=== PATIENT | female | born 1955 | race Caucasian/White ===

== ENCOUNTER → 2017-02-09 | Day surgery (SDC) | payer BC ==
[2017-01-15 09:03] VITALS: Ht 167.6 cm; Wt 86.4 kg
[~2017-02-09] VITALS: Ht 167.6 cm; Wt 86.4 kg
[~2017-02-09] MED LIST: 500ML BSS 0.3ML EPI 1:1000PF IRRIG ONE; ACETAMINOPHEN 325 MG TAB PO PRN; AMVISC PLUS 0.8ML SYRINGE INT OCU ONE; ASCA500 PO; BRIMONIDINE TART 0.2% OP SOLN PER DROP CHARGE ONE; BSS FLUSH ONE; CHOL20007 PO; ENDOCOAT 0.85ML SYRINGE INT OCU ONE; EpINEphrine INJ 1MG/ML AMP 1 MG/ML AMP ONE; LACTATED RINGER'S 1000ML 500 ML IV SCH; LEVO125T72 PO; LIDOCAINE 4% OP SOLN DROP CHARGE ONE; LIDOCAINE 4% OP SOLN DROP CHARGE OPR SCH; LIDOCAINE HCL 1% MPF 2 ML VIAL ONE; LIOT5TAB PO; MIDAZOLAM HCL 1 MG/ML 2ML VIAL ONE; MOXIFLOXACIN OPH SOLN PER DROP CHARGE ONE; NURSING VERBAL MED ORDER ONE; POVIDONE-IODINE OP SOLN 30 ML BTL ONE; PROPARACAINE 0.5% OP SOLN PER DROP CHARGE OPR SCH; SELE200C3 PO; TOBRAMYCIN/DEXAMETHASONE OPH OINT PER APPLN CHARGE ONE; VISCOAT 0.5ML SYRINGE INT OCU ONE
[2017-02-09] MEDS: PHENYLEPHRINE HCL 2.5% OP SOLN PER DROP CHARGE OPR SCH ×2 (08:48→08:53)
[2017-02-09] MEDS: TROPICAMIDE 1% OP SOLN PER DROP CHARGE OPR SCH ×2 (08:49→08:54)
[2017-02-09] MEDS: CYCLOPENTOLATE HCL 1% OP SOLN PER DROP CHARGE OPR SCH ×2 (08:50→08:55)
[2017-02-09] MEDS: KETOROLAC 0.5% OP SOLN PER DROP CHARGE OPR SCH ×2 (08:51→08:56)
[2017-02-09] MEDS: MOXIFLOXACIN OPH SOLN PER DROP CHARGE OPR SCH ×2 (08:52→09:02)
--- NOTE | 2017-02-09 09:15 | History & Physical Bridge - SC ---
H&P Re-Evaluation Bridge Note: I have examined the patient, reviewed the History & Physical and in the interval since the performance of the History & Physical I have noted the following changes of clinical significance: No changes noted
--- NOTE | 2017-02-09 10:06 | Discharge Instructions-SurgCtr ---
Discharge Instructions Date of Service Feb 09, 2017. Visit Reason for Visit: Cataract Right Eye Discharge Discharge Diagnosis / Problem: cataract right eye Discharge Goals Goal(s): Improve function Activity Recommendations Activity Limitations: per Instructions/Follow-up section Lifting Limitations: no more than 5 pounds Anesthesia . Post Anesthesia Instructions: If you have had General Anesthesia or IV Sedation: * Do not drive today. * Resume driving when surgeon permits. * Do not make important decisions or sign legal documents today. * Call surgeon for: 1. Temperature elevations greater than 101 degrees F. 2. Uncontrollable pain. 3. Excessive bleeding. 4. Persistent nausea and vomiting. 5. Medication intolerance (nausea, vomiting or rash). * For nausea and vomiting use only clear liquids such as: tea, soda, bouillon until nausea subsides, then gradually increase diet as tolerated. * If you have any concerns or questions, call your surgeon's office. If physician is unavailable and it is an emergency, call 911 or go to the nearest emergency room. . Instructions / Follow-Up Instructions / Follow-Up ACTIVITY RECOMMENDATIONS: * Light activities * You may walk outside, read, watch television. * Mild irritation and blurred vision are common for the first few days, redness around the white part of the eye is common. MEDICATIONS: Resume previous medications unless instructed otherwise by your surgeon. Eye drops (today and tomorrow): Cipro - one drop in operative eye every 2 hours while awake Prednisolone 1% - one drop in operative eye every 2 hours while awake Prolensa - one drop operative eye 1 times daily SPECIAL CARE INSTRUCTIONS: * If any problems or concerns, please call Dr. Petty's office at . * Keep plastic shield taped over eye to sleep at night. * Keep plastic shield taped over eye except to administer eye drops. * Keep plastic shield on until office visit the following day. FOLLOW UP VISIT: Follow-up with Dr. Petty in the [place] office as scheduled. If not already scheduled, please call the office at . Diet Recommendations Home Diet: resume previous diet Procedures Procedures Performed: Right Eye Cataract Phacoemulsification With Intraocular Lens Implant Pending Studies Studies pending at discharge: no Medical Emergencies . Who to Call and When: Medical Emergencies: If at any time you feel your situation is an emergency, please call 911 immediately. . Non-Emergent Contact Non-Emergency issues call your: Security Alarm Installer . . "Provider Documentation" section prepared by Omkar Petty. .
[2017-02-09 10:07] VITALS: TEMP 36.2
--- NOTE | 2017-02-09 10:08 | [facility] Operative Report ---
Operative Report Operative Date Feb 09, 2017. Pre-Operative Diagnosis Right Eye Cataract Post-Operative Diagnosis Same Procedure(s) Performed Right Eye Cataract Phacoemulsification With Intraocular Lens Implant Surgeon Dr. Petty Nutrition Partner Surgeon(s) None Estimated Blood Loss None Findings cataract right eye Fluids (cc crystalloids) see anesthesia record Specimens None Drains none Anesthesia local with sedation Complication(s) None Disposition Recovery Room / PACU Implants [id number] 17.5 Indications decreased vision right eye Description of Procedure After informed consent was obtained in the holding area the patient was wheeled back to the operating room where cardiac monitoring leads and oxygen by nasal cannula was administered by Anesthesia. Gentle IV sedation was given, and the patient's right eye was prepped and draped in usual sterile fashion. A wire lid speculum was placed into the right eye and the operating microscope was swung into position. Using 0.12 forceps and a Supersharp blade a paracentesis port was made 2 o'clock hours away from the 9 o'clock position of the patient's right eye. 1% non-preserved Lidocaine was then injected into the anterior chamber for anesthesia. A 2.0 mm keratotome blade was then used to make a shelved clear corneal incision at the 9 o'clock position of the right eye. Amvisc was injected into the anterior chamber and a cystotome and Utrata forceps were used to perform a curvilinear capsulorrhexis. BSS on a hydrodissection cannula was used to hydrodissect the lens nucleus away from the capsular bag. The phacoemulsification handpiece was then used in a stop and chop fashion to remove the lens nucleus. The irrigation and aspiration handpiece was then used to remove the residual cortical material. Amvisc was injected into the capsular bag and anterior chamber and a Bausch [employer] Lomb MX60 17.5 Diopter intraocular lens was injected into the capsular bag. Irrigation and aspiration handpiece was used to remove the residual viscoelastic material. The wounds were hydrated and noted to be watertight. The wire lid speculum was removed from the eye. Vigamox, Brimonidine, and TobraDex ointment were placed on the eye and it was shielded. It should be noted that EndoCoat was used extensively during the case to protect the cornea endothelium. DISPOSITION: The patient tolerated the procedure well and was wheeled to the post anesthesia care unit in stable condition. I attest to the content of the Intraoperative Record and any orders documented therein. Any exceptions are noted below. I attest to the content of the Intraoperative Record and any orders documented therein. Any exceptions are noted below.
--- NOTE | 2017-02-09 10:12 | Anesthesia Progress Nt - [facility] ---
Anesthesia Post Op Note Date & Time Feb 09, 2017 at 10:12 Vital Signs Pain Intensity: 0 Vital Signs Past 12 Hours Date Time Temp Pulse Resp B/P (MAP) Pulse Ox O2 Delivery O2 Flow Rate FiO2 02/09/17 10:07 36.2 55 16 113/75 (88) 99 Room Air 02/09/17 08:38 37.2 65 22 122/81 (95) 96 Room Air Notes Mental Status: alert / awake / arousable, participated in evaluation Pt Amnestic to Procedure: Yes Nausea / Vomiting: adequately controlled Pain: adequately controlled Airway Patency, RR, SpO2: stable & adequate BP & HR: stable & adequate Hydration State: stable & adequate Anesthetic Complications: no major complications apparent
[2017-02-09 10:27] VITALS: BP 104/71; PULSE 53; O2SAT 96
== END | disposition home or self-care (01) ==
LOC: X.SURG 08:16
PROVIDERS: ATTEND Ophthalmology
DX: H26.9 Unspecified cataract (principal); E03.9 Hypothyroidism, unspecified; Z98.42 Cataract extraction status, left eye; Z98.890 Other specified postprocedural states

== ENCOUNTER 2017-05-29 14:12 | Emergency (ER) | payer BC, OTHER ==
[~2017-05-29] VITALS: Ht 167.6 cm; Wt 86.1 kg
[~2017-05-29 14:12] MED LIST changes: -500ML BSS 0.3ML EPI 1:1000PF IRRIG ONE; -ACETAMINOPHEN 325 MG TAB PO PRN; -AMVISC PLUS 0.8ML SYRINGE INT OCU ONE; -BRIMONIDINE TART 0.2% OP SOLN PER DROP CHARGE ONE; -BSS FLUSH ONE; -ENDOCOAT 0.85ML SYRINGE INT OCU ONE; -EpINEphrine INJ 1MG/ML AMP 1 MG/ML AMP ONE; -LACTATED RINGER'S 1000ML 500 ML IV SCH; -LIDOCAINE 4% OP SOLN DROP CHARGE ONE; -LIDOCAINE 4% OP SOLN DROP CHARGE OPR SCH; -LIDOCAINE HCL 1% MPF 2 ML VIAL ONE; -MIDAZOLAM HCL 1 MG/ML 2ML VIAL ONE; -MOXIFLOXACIN OPH SOLN PER DROP CHARGE ONE; -NURSING VERBAL MED ORDER ONE; -POVIDONE-IODINE OP SOLN 30 ML BTL ONE; -PROPARACAINE 0.5% OP SOLN PER DROP CHARGE OPR SCH; -TOBRAMYCIN/DEXAMETHASONE OPH OINT PER APPLN CHARGE ONE; -VISCOAT 0.5ML SYRINGE INT OCU ONE
[2017-05-29 14:14] VITALS: TEMP 36.9; Ht 167.6 cm; Wt 86.1 kg
[2017-05-29] MEDS ORDERED: SODIUM CHLORIDE 0.9% 1000ML 1,000 ML IV STA (14:29)
--- NOTE | 2017-05-29 14:39 | EMERGENCY ROOM VISIT NOTE ---
History Report prepared by Zoya: Nain Luna Under the Supervision of: Dr. Yonis Urena M.D. First contact with patient: 14:17 Chief Complaint: REFERRED BY DOCTOR Stated Complaint: SENT BY DOCTOR History of Present Illness The patient is a 61 year old female who presents to the Emergency Room with complaints of shortness of breath that began prior to arrival. The patient had an Ultrasound 3 days [address] and a [address] scan yesterday which revealed bilateral PE's and abdominal masses. She was seen at [facility] by BRYNN Partida who referred her to come to the ED. The patient reports hip pain, SOB, a weight loss of 14 pounds over the past year, and decreased level of activity. She states that she has regular pap smears and colonoscopies. She denies syncope, headaches, and black tarry stools. She states that she has no leg swelling or calf pain. She denies a history of blood clots and colon cancer, recent travel, and surgeries. Her mother has a history of strokes. 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 Patient denies black and tarry stools, leg swelling, and calf pain. Review of Systems See HPI for pertinent positives & negatives. A total of 10 systems reviewed and were otherwise negative. Past Medical & Surgical Medical Problems: (1) Disseminated malignancy of unknown primary (2) Pulmonary emboli Social History Smoking Status: Never Smoker Alcohol Use: none Drug Use: none Marital Status: Housing Status: lives with significant other Current/Historical Medications Scheduled Levothyroxine Sodium (Synthroid), 125 MCG PO QAM Liothyronine Sodium (Cytomel), 10 MCG PO QAM Selenium (Selenium), 200 MCG PO QAM Allergies Coded Allergies: No Known Allergies (Unverified , 05/29/17) Physical Exam Vital Signs Date Time Temp Pulse Resp B/P (MAP) Pulse Ox O2 Delivery O2 Flow Rate FiO2 05/29/17 19:24 75 18 136/90 96 Room Air 05/29/17 17:59 68 18 118/71 96 Room Air 05/29/17 16:30 66 17 98 Room Air 05/29/17 16:26 67 05/29/17 16:00 67 19 97 Room Air 05/29/17 15:30 80 15 120/93 96 Room Air 05/29/17 14:14 36.9 100 20 127/86 96 Room Air Physical Exam GENERAL: Patient is anxious appearing and in minimal distress. EYES: No scleral icterus, unremarkable pupils. ENT: Mucous membranes moist, no nasal congestion. NECK: No masses appreciated, no meningismus, trachea is midline. RESPIRATORY: Mildly dyspneic. Clear to auscultation and equal bilaterally. No wheeze, no rhonchi. CARDIOVASCULAR: Regular rate and rhythm. No murmurs, rubs, gallops appreciated. GASTROINTESTINAL: Large central mobile mass in mid abdomen. Abdomen soft, nontender, no peritonitis. Bowel sounds positive. No masses appreciated. BACK: No midline tenderness, no CVA tenderness EXTREMITIES: Normal motion all extremities, no cyanosis, no edema. NEUROLOGIC: Alert and oriented, no acute motor or sensory deficits, no focal weakness, cranial nerves grossly intact. SKIN: No rash, no jaundice, no diaphoresis. Medical Decision & Procedures ER Provider Diagnostic Interpretation: Radiology results and stated below per my review and radiologist interpretation: CT ABDOMEN/PELVIS (05/28/2017) Impression: Right lower lobe pulmonary emboli which are incompletely visualized on this examination. CT PE study recommend. Extremely large lobulated heterogenous mass in the root of the mesentery significantly compressing the IVC with resultant thrombus in the iliac veins, left side greater than right thrombus in the right ovarian vein. Large masses and nodules in the lung bases bilaterally. Nodules within the retroperitoneum. Differential diagnosis would include GIST tumor which may be arising from the inferior aspect of the 3rd portion of the duodenum or less likely lymphoma. Biopsy recommended. Note: The above findings were discussed with and confirmed by RACHANA ALMONTE at approximately 4:05 pm on 05/28/2017. Authenticated by POLLY MANE MD on 05/28/2017 at 16:08. CT ABDOMEN/PELVIS (05/29/2017) Impression: Large acute pulmonary embolism in the right lower love and smaller pulmonary emboli in the right upper lobe. Multiple pulmonary nodules, suspicious for metastases in this setting. Multiple soft tissue nodules in the included upper abdomen, suspicious for metastatic implants. Large hiatal hernia with intrathoracic stomach. Mild T12 superior vertebral endplate nonspecific compression. The information above was relayed directly by me by telephone to SUZY RACHANA on 05/29/2017 at 1:10 pm who expressed understanding. Authenticated by MARIAH RAMIREZ MD on 05/29/2017 at 13:21. Laboratory Results 05/29/17 14:40 Red Blood Count 4.26, Mean Corpuscular Volume 85.0, Mean Corpuscular Hemoglobin 29.1, Mean Corpuscular Hemoglobin Concent 34.3, Mean Platelet Volume 8.5, Neutrophils (%) (Auto) 74.6, Lymphocytes (%) (Auto) 14.1, Monocytes (%) (Auto) 9.1, Eosinophils (%) (Auto) 1.1, Basophils (%) (Auto) 0.7, Neutrophils # (Auto) 5.67, Lymphocytes # (Auto) 1.07, Monocytes # (Auto) 0.69, Eosinophils # (Auto) 0.08, Basophils # (Auto) 0.05 05/29/17 14:40 Test 05/29/17 14:40 White Blood Count 7.59 K/uL (4.8-10.8) Red Blood Count 4.26 M/uL (4.2-5.4) Hemoglobin 12.4 g/dL (12.0-16.0) Hematocrit 36.2 % (37-47) Mean Corpuscular Volume 85.0 fL (80-100) Mean Corpuscular Hemoglobin 29.1 pg (25-34) Mean Corpuscular Hemoglobin Concent 34.3 g/dl (32-36) Platelet Count 342 K/uL (130-400) Mean Platelet Volume 8.5 fL (7.4-10.4) Neutrophils (%) (Auto) 74.6 % Lymphocytes (%) (Auto) 14.1 % Monocytes (%) (Auto) 9.1 % Eosinophils (%) (Auto) 1.1 % Basophils (%) (Auto) 0.7 % Neutrophils # (Auto) 5.67 K/uL (1.4-6.5) Lymphocytes # (Auto) 1.07 K/uL (1.2-3.4) Monocytes # (Auto) 0.69 K/uL (0.11-0.59) Eosinophils # (Auto) 0.08 K/uL (0-0.5) Basophils # (Auto) 0.05 K/uL (0-0.2) RDW Standard Deviation 39.4 fL (36.4-46.3) RDW Coefficient of Variation 12.9 % (11.5-14.5) Immature Granulocyte % (Auto) 0.4 % Immature Granulocyte # (Auto) 0.03 K/uL (0.00-0.02) Prothrombin Time 11.3 SECONDS (9.0-12.0) Prothromb Time International Ratio 1.1 (0.9-1.1) Activated Partial Thromboplast Time 28.8 SECONDS (21.0-31.0) Partial Thromboplastin Ratio 1.1 Anion Gap 10.0 mmol/L (3-11) Est Creatinine Clear Calc Drug Dose 66.9 ml/min Estimated GFR () 71.4 Estimated GFR (Non- 61.6 BUN/Creatinine Ratio 9.3 (10-20) Calcium Level 9.2 mg/dl (8.5-10.1) Total Bilirubin 0.4 mg/dl (0.2-1) Aspartate Amino Transf (AST/SGOT) 27 U/L (15-37) Alanine Aminotransferase (ALT/SGPT) 16 U/L (12-78) Alkaline Phosphatase 84 U/L (45-117) Troponin I < 0.015 ng/ml (0-0.045) Total Protein 8.1 gm/dl (6.4-8.2) Albumin 3.2 gm/dl (3.4-5.0) Globulin 4.9 gm/dl (2.5-4.0) Albumin/Globulin Ratio 0.7 (0.9-2) Lipase 176 U/L (73-393) Carcinoembryonic Antigen < 0.5 ng/ml (0-2.5) Medications Administered Medications (Trade) Dose Ordered Sig/Damaso Route Start Time Stop Time Status Last Admin Dose Admin Sodium Chloride 1,000 ml @ 999 mls/hr Q1H1M STAT IV 05/29/17 14:29 05/29/17 15:29 DC 05/29/17 14:29 999 MLS/HR Heparin Sodium/ Dextrose (Heparin 25,000 Unit/500ml D5W) 25,000 unit STK-MED ONCE .ROUTE 05/29/17 15:19 05/29/17 15:20 DC 05/29/17 15:25 25,000 UNIT Heparin Sodium (Porcine) (Heparin Sq 5000 Unit/0.5ml) 5,000 unit STK-MED ONCE .ROUTE 05/29/17 15:19 05/29/17 15:20 DC 05/29/17 15:25 5,000 UNIT ECG Per My Interpretation Indication: SOB/dyspnea Rate (beats per minute): 80 Rhythm: normal sinus Findings: no acute ischemic change, no ectopy, other (QTc of 442) ED Course 1417: The patient was evaluated in room B10. A complete history and physical exam was performed. 1500: I checked on the patent and had an extended discussion with her Heparin and her CT findings. 1550: Discussed the patient's case with Dr. Mariscal. The patient will be evaluated for further treatment and disposition. 1615: I checked on the patient and she has no headache. We are waiting on the hospitalist. 1718: Discussed the patient's case with Dr. August, Dr. Trey Sanchez, and Dr. Fonseca. The patient will be evaluated for further treatment and disposition. 1722: I rediscussed the case. She has no headache or abdominal pain. 1818: I checked on the patient. After Dr. Mariscal asked I transfer the patient, I paged [facility] to discuss the case with them. 1842: Discussed the patient's case with Dr. Lai Wilson. The patient will be evaluated for further treatment and disposition. 1856: I checked on the patient. She is aware of plan and understands that they do not currently have a bed at [place]. She is aware that they will give us a timeline and update us. 1930: I spoke with the patient and informed her that there is a bed at [place]. Medical Decision 61 yr old female sent in by clinic for evaluation of multiple PE's noted on outpatient CT. She has had several months of decreased appetite, weight loss, fatigue and noted mass mid abdomen recently. CT abdo/pelv outpatient showed abdominal mass with extensive metastisis as well as lower lobe PEs. She was then sent for CT PE study which found current issues. She is hemodynamically stable. She is noted to have many mets including to bone throughout CTs. Given multiple PE's, large clot burden in abdominal vasculature she is at high risk of rapid decompensation. She was started on IV heparin for PE treatment. Initially planned bringing in to here but after hospitalist evaluation change to need for transfer given difficulty getting biopsy done [facility]. Reviewed with Case Management who note her insurance allows transfer to [facility]. Reviewed with Dr Wilson [facility] who accepts for transfer. Issues with getting bed and stable throughout. Multiple re-evaluations of patient with bedside management. I made very clear to her the risks associated with all of this. All questions answered to best my ability. Medication Reconcilliation Current Medication List: was personally reviewed by me Blood Pressure Screening Patient's blood pressure: Normal blood pressure Blood pressure disposition: Did not require urgent referral Consults Time Called: 1716 Consulting Physician: Dr. August, Dr. Trey Sanchez, and Dr. Fonseca Returned Call: 1718 Discussed the patient's case. The patient will be evaluated for further treatment and disposition. Additional Consults: Time Called: 1545 Consulted Physician: Dr. Mariscal Returned Call: 1550 Additional Comments: Discussed the patient's case. The patient will be evaluated for further treatment and disposition. Time Called: 1840 Consulted Physician: Dr. Lai Wilson Returned Call: [phone] Additional Comments: Discussed the patient's case. The patient will be evaluated for further treatment and disposition. Impression Primary Impression: Pulmonary emboli Additional Impressions: Metastatic cancer Abdominal desmoid tumor Hyponatremia Critical Care I have personally spent greater than 90 minutes of critical care time in the direct management of this patient. This was a life/limb threatening event. This includes time spent evaluating patient, direct bedside care, chart review, placing orders, interpretation of diagnostic studies, discussion with consultants, patient, and family members, as well as other required patient management activities. This 90 minutes is in excess of all separately billable procedures. Scribe Attestation The scribe's documentation has been prepared under my direction and personally reviewed by me in its entirety. I confirm that the note above accurately reflects all work, treatment, procedures, and medical decision making performed by me. Departure Information Dispostion Transfer Acute Care Facility Referrals Joya Garcia D.O. (PCP) Patient Instructions My [facility] Problem Qualifiers
[2017-05-29 14:49] LABS: BASO % 0.7 %; BASO ABS # 0.05 K/uL (0-0.2); EOS % 1.1 %; EOS ABS # 0.08 K/uL (0-0.5); HEMATOCRIT 36.2 % (37-47); HEMOGLOBIN 12.4 g/dL (12.0-16.0); IG# 0.03 K/uL (0.00-0.02); LYMPH % 14.1 %; LYMPH ABS # 1.07 K/uL (1.2-3.4); MEAN CORPUSCULAR HEMOGLOBIN 29.1 pg (25-34); MEAN CORPUSCULAR HGB CONC 34.3 g/dl (32-36); MEAN PLATELET VOLUME 8.5 fL (7.4-10.4); MONO % 9.1 %; MONO ABS # 0.69 K/uL (0.11-0.59); NEUT % 74.6 %; NEUT ABS # 5.67 K/uL (1.4-6.5); PLATELET COUNT 342 K/uL (130-400); RED CELL DISTRIBUTION WIDTH CV 12.9 % (11.5-14.5); RED CELL DISTRIBUTION WIDTH SD 39.4 fL (36.4-46.3); WHITE BLOOD COUNT 7.59 K/uL (4.8-10.8)
[2017-05-29 14:59] LABS: INR 1.1 (0.9-1.1); PTT PATIENT 28.8 SECONDS (21.0-31.0)
[2017-05-29 15:07] LABS: ALBUMIN 3.2 gm/dl (3.4-5.0); ALT/SGPT 16 U/L (12-78); BLOOD UREA NITROGEN 9 mg/dl (7-18); CALCIUM 9.2 mg/dl (8.5-10.1); CARBON DIOXIDE 24 mmol/L (21-32); GLUCOSE 109 mg/dl (70-99); LIPASE 176 U/L (73-393); POTASSIUM 3.7 mmol/L (3.5-5.1); SODIUM 131 mmol/L (136-145)
[2017-05-29 15:12] LABS: ALKALINE PHOSPHATASE 84 U/L (45-117); AST/SGOT 27 U/L (15-37); TOTAL PROTEIN 8.1 gm/dl (6.4-8.2)
[2017-05-29] MEDS ORDERED: HEPARIN SOD 5000 UNIT/0.5 ML CARP ONE (15:19)
[2017-05-29] MEDS ORDERED: HEPARIN 25000 UNIT/500 ML D5W ONE (15:19)
[2017-05-29] MEDS ORDERED: SODIUM CHLORIDE 0.9% 1000ML 1,000 ML IV SCH (17:13)
[2017-05-29] MEDS ORDERED: ACETAMINOPHEN 325 MG TAB PO PRN (17:15)
[2017-05-29] MEDS ORDERED: ONDANSETRON INJ 2 MG/ML 2 ML VIAL IV PRN (17:15)
[2017-05-29] MEDS ORDERED: ALUMINUM/MAGNESIUM/SIMETH (MAALOX MAX) 30 ML UDC PO PRN (17:15)
[2017-05-29] MEDS ORDERED: POLYETHYLENE (MIRALAX) 17 GM PACK PO PRN (17:15)
[2017-05-29] MEDS ORDERED: NITROGLYCERIN 0.4 MG SL PER TAB CHARGE SL PRN (17:15)
[2017-05-29] MEDS ORDERED: MAGNESIUM HYDROXIDE SUSP 30 ML UDC PO PRN (17:15)
--- NOTE | 2017-05-29 19:31 | Medical Consult ---
History General Date of Service: May 29, 2017. Stated Complaint: Sent By Doctor HPI The patient is a 61 year old female who presents to [facility] with complaints of Sent By Doctor. The patient's primary care provider is Joya Garcia D.O.. This is a 61-year-old female with no prior medical history, healthy and active at baseline. Had severe bilateral hip pain for approximately 3 weeks. Patient denies of any trauma or fall. She continued to do yoga, stretches for improvement. Patient also noted swelling/mass on her lower abdomen, nontender Thought the symptom is secondary to muscle spasm Patient went to a massage therapist for ongoing hip and back pain Therapist noted abdomen mass and asked her to follow-up with her family doctor Patient saw a Tiffanie Peoples PA-C on May 22, for abdominal and hip pain. Order for abdomen ultrasound. Noted to have mass in mid abdomen. CT abdomen pelvis with contrast: Shows soft tissue mass within the anterior abdominal wall. Patient was ordered CT chest with contrast showed bilateral PE pt was asked to come to the ER for evaluation Patient also reports lack of appetite in the past few weeks secondary to abdomen mass. Had weight loss approximately 14 pounds in last 3 months Review of Systems Constitutional: reports: weight loss (14 pounds in last 3 months) ENT: denies: no symptoms, as stated in HPI, ear pain, ear discharge, loss of hearing, tinnitus, nasal pain, nasal congestion, rhinorrhea, epistaxis, sore throat, stridor, throat swelling, mouth pain, mouth swelling, dental pain, gum swelling, other Cardiovascular: denies: no symptoms, as stated in HPI, chest pain, chest pressure, chest tightness, diaphoresis, edema, intermittent claudication, orthopnea, palpitations, syncope, other Respiratory: denies: no symptoms, as stated in HPI, cough, orthopnea, shortness of breath, stridor, wheezing, sputum production, cyanosis, FREITAS, PND, hemoptysis, other Gastrointestinal: reports: as stated in HPI, abdominal pain, other (Mass in the abdomen) Musculoskeletal: reports: other ( back and hip pain) Neurologic: denies: no symptoms, as stated in HPI, headache, dizziness, general weakness, focal weakness, numbness, tingling, paresthesia, pre-existing deficit, tremors, tics, vertigo, seizure, lethargy, memory loss, other Social History Hx Tobacco Use In Past Year?: No Smoking Status: Never Smoker Marital status: History of MDRO History of MDRO: No Allergies Coded Allergies: No Known Allergies (Unverified , 05/29/17) Current Medications Reported Home Medications Medications Dose Route/Sig Max Daily Dose Days Date Category Selenium 200 Mcg Cap 200 Mcg PO QAM 01/15/17 Reported Cytomel (Liothyronine Sodium) 5 Mcg Tab 10 Mcg PO QAM 01/15/17 Reported Synthroid (Levothyroxine Sodium) 125 Mcg Tab 125 Mcg PO QAM 01/15/17 Reported Physical Physical Exam Vital Signs: Date Time Temp Pulse Resp B/P (MAP) Pulse Ox O2 Delivery O2 Flow Rate FiO2 05/29/17 19:24 75 18 115/76 96 Room Air 05/29/17 17:59 68 18 118/71 96 Room Air 05/29/17 16:30 66 17 98 Room Air 05/29/17 16:26 67 05/29/17 16:00 67 19 97 Room Air 05/29/17 15:30 80 15 120/93 96 Room Air 05/29/17 14:14 36.9 100 20 127/86 96 Room Air General Appearance: WELL-APPEARING, NO APPARENT DISTRESS Head: NORMOCEPHALIC, ATRAUMATIC Eyes: PERRLA Neck: NORMAL RANGE OF MOTION, SUPPLE Respiratory: BREATH SOUNDS NORMAL, CLEAR TO AUSCULTATION Cardiovasular: REGULAR RATE/RHYTHM Abdomen: NON TENDER, mass noted (Mass noted in mid abdomen), other Lower Extremities: NO EDEMA Neuro: ALERT, ORIENTED x 3 Psychiatric: NORMAL AFFECT Diagnostics Labs Results Past 24 Hours Test 05/29/17 14:40 Range/Units White Blood Count 7.59 4.8-10.8 K/uL Red Blood Count 4.26 4.2-5.4 M/uL Hemoglobin 12.4 12.0-16.0 g/dL Hematocrit 36.2 37-47 % Mean Corpuscular Volume 85.0 80-100 fL Mean Corpuscular Hemoglobin 29.1 25-34 pg Mean Corpuscular Hemoglobin Concent 34.3 32-36 g/dl Platelet Count 342 130-400 K/uL Mean Platelet Volume 8.5 7.4-10.4 fL Neutrophils (%) (Auto) 74.6 % Lymphocytes (%) (Auto) 14.1 % Monocytes (%) (Auto) 9.1 % Eosinophils (%) (Auto) 1.1 % Basophils (%) (Auto) 0.7 % Neutrophils # (Auto) 5.67 1.4-6.5 K/uL Lymphocytes # (Auto) 1.07 1.2-3.4 K/uL Monocytes # (Auto) 0.69 0.11-0.59 K/uL Eosinophils # (Auto) 0.08 0-0.5 K/uL Basophils # (Auto) 0.05 0-0.2 K/uL RDW Standard Deviation 39.4 36.4-46.3 fL RDW Coefficient of Variation 12.9 11.5-14.5 % Immature Granulocyte % (Auto) 0.4 % Immature Granulocyte # (Auto) 0.03 0.00-0.02 K/uL Prothrombin Time 11.3 9.0-12.0 SECONDS Prothromb Time International Ratio 1.1 0.9-1.1 Activated Partial Thromboplast Time 28.8 21.0-31.0 SECONDS Partial Thromboplastin Ratio 1.1 Sodium Level 131 136-145 mmol/L Potassium Level 3.7 3.5-5.1 mmol/L Chloride Level 97 98-107 mmol/L Carbon Dioxide Level 24 21-32 mmol/L Anion Gap 10.0 3-11 mmol/L Blood Urea Nitrogen 9 7-18 mg/dl Creatinine 1.00 0.60-1.20 mg/dl Est Creatinine Clear Calc Drug Dose 66.9 ml/min Estimated GFR () 71.4 Estimated GFR (Non- 61.6 BUN/Creatinine Ratio 9.3 10-20 Random Glucose 109 70-99 mg/dl Calcium Level 9.2 8.5-10.1 mg/dl Total Bilirubin 0.4 0.2-1 mg/dl Aspartate Amino Transf (AST/SGOT) 27 15-37 U/L Alanine Aminotransferase (ALT/SGPT) 16 12-78 U/L Alkaline Phosphatase 84 45-117 U/L Troponin I < 0.015 0-0.045 ng/ml Total Protein 8.1 6.4-8.2 gm/dl Albumin 3.2 3.4-5.0 gm/dl Globulin 4.9 2.5-4.0 gm/dl Albumin/Globulin Ratio 0.7 0.9-2 Lipase 176 73-393 U/L Carcinoembryonic Antigen < 0.5 0-2.5 ng/ml Diagnostic Radiology CT chest with contrast: 05/29/2017: Large acute pulmonary embolism in the right lower lobe and smaller pulmonary emboli in the right upper lobe. Multiple pulmonary nodules suspicious for metastasis. Multiple soft tissue nodules in in upper abdomen suspicious for metastatic implant T12 superior vertebral endplate compression deformity Impression Assessment and Plan ABDOMEN MASS/METASTATIC CANCER Incidental finding, Noted to have abdominal discomfort, poor appetite for the last 3-[address] abdomen pelvis done at [facility] yesterday 05/28/2017 shows large intra -abdominal mass with widespread metastasis Patient will need tissue diagnosis Metastatic cancer of unknown primary: Possible either GI or ovarian source Patient had screening colonoscopy 9 years back Repeat colonoscopy 1 year ago had polyp resection pathology was benign Patient is non-smoker Has regular mammograms screen, no breast mass No family history of ovarian, uterine or breast CA Patient will need tissue biopsy followed by chemoradiation treatment Radiology consulted for biopsy Pulmonology consulted for bilateral PE pulmonary nodule Hematology oncology consulted PULMONARY EMBOLISM Patient mentions of being very active, involved in exercise yoga Possible secondary to advanced malignancy Started on IV heparin weight-based protocol Lower extremity Doppler to rule out DVT HIP/BACK PAIN Possible due to bone metastases CT abdomen pelvis shows T12 cancer involvement Will need bone scan/PET CT scan Followed by radiation treatment, if biopsy of pathology shows radiation sensitive CODE STATUS: Full code DVT prophylaxis: IV heparin weight-based protocol DISPOSITION: Patient presents with advanced age of metastatic CA with unknown primary. Will need tissue biopsy followed by chemoradiation treatment. Discussed with on- call radiologist, patient has multiple metastases, present with IV heparin weight-based protocol. CT-guided biopsy will not be able to done until Thursday Given that rapid progression of the malignancy patient will benefit with early diagnosis/biopsy and initiation of treatment Will be benefited transferred to tertiary care/[place] for interventional radiology guided biopsy and advanced oncology support Discussed with patient and her Agreeable to be transferred to [place] ER attending updated Patient is accepted at oncology service and [facility] Will be transferred there via ambulance Dariana Mariscal MD DVT Prophylaxis other (IV heparin weight-based protocol) Additional Copies To Joya Garcia D.O.
[2017-05-29 21:50] VITALS: BP 127/81; PULSE 71; O2SAT 97
[2017-05-29 22:03] LABS: PTT PATIENT 43.3 SECONDS (21.0-31.0)
[2017-05-29] MEDS ORDERED: HEPARIN 25,000 UNIT/500ML D5W 500 ML IV SCH (22:30)
[2017-06-01 13:41] LABS: CA 125 **TC 29256X 18 U/ML (<35); CA 19-9 TC 4698 8 U/ML (<34)
== END 2017-05-29 21:51 | disposition short-term general hospital (02) ==
LOC: C.EDB 14:13 → ENRESERV 18:13 → CANBEDREQ 20:39 → C.EDA 21:51
DX: I26.99 Other pulmonary embolism without acute cor pulmonale (principal); D49.2 Neoplasm of unspecified behavior of bone, soft tissue, and skin; C79.51 Secondary malignant neoplasm of bone; C79.89 Secondary malignant neoplasm of other specified sites; K44.9 Diaphragmatic hernia without obstruction or gangrene

== ENCOUNTER 2017-06-18 11:12 | Day surgery (SDC) | payer OTHER ==
[2017-06-17 16:09] VITALS: Ht 168.9 cm; Wt 81.8 kg
[~2017-06-18] VITALS: Ht 168.9 cm; Wt 81.8 kg
[~2017-06-18 11:12] MED LIST changes: -ASCA500 PO; +CEFAZOLIN 2000MG IV PUSH 15 ML IV SCH; -CHOL20007 PO; +ENOX100I INJ; +LACTATED RINGER'S 1000ML 1,000 ML IV SCH; +ONDA-170 PO; +OXYC1TAB3 PO; +PATIENT'S HEIGHT AND/OR WEIGHT NEEDED SCH; +PROC1TAB5 PO; +SEE NOTES; -SELE200C3 PO
[2017-06-18 11:59] VITALS: BP 99/59; PULSE 78; TEMP 36.9; O2SAT 96
[2017-06-18] MEDS ORDERED: ONDANSETRON INJ 2 MG/ML 2 ML VIAL ONE (12:32)
[2017-06-18] MEDS ORDERED: PROPOFOL IV EMULSION 10 MG/ML 20 ML VIAL IV ONE ×4 (12:32→13:41)
[2017-06-18] MEDS ORDERED: MIDAZOLAM HCL 1 MG/ML 2ML VIAL ONE (12:32)
[2017-06-18] MEDS ORDERED: LIDOCAINE HCL 2% 2 ML VIAL (20MG/ML) ONE (12:32)
[2017-06-18] MEDS ORDERED: FENTANYL CITRATE INJ 50 MCG/1 ML 2 ML VIAL ONE ×2 (12:32→13:16)
[2017-06-18] MEDS ORDERED: LIDOCAINE HCL 1% 20 ML VIAL ONE (12:44)
[2017-06-18] MEDS ORDERED: ONDANSETRON INJ 2 MG/ML 2 ML VIAL IV PRN ×2 (12:45→14:00)
[2017-06-18] MEDS ORDERED: PHENYLEPHRINE 100MCG/ML 5ML SYR IV PRN (12:45)
[2017-06-18] MEDS ORDERED: FENTANYL CITRATE INJ 50 MCG/1 ML 2 ML VIAL IV PRN (12:45)
[2017-06-18] MEDS ORDERED: ATROPINE SULFATE 0.1 MG/ML 5ML SYR IV PRN (12:45)
[2017-06-18] MEDS ORDERED: BACITRACIN OINT 15 GM TUBE ONE (12:45)
[2017-06-18] MEDS ORDERED: BUPIVACAINE 0.5 % 5 MG/1 ML MPF 30ML VIAL ONE (12:45)
[2017-06-18] MEDS ORDERED: NALOXONE HCL 0.4 MG/1 ML VIAL/CARP IV PRN (12:45)
[2017-06-18] MEDS ORDERED: HYDROmorphone INJ 2 MG/ML SYR/VIAL IV PRN (12:45)
[2017-06-18] MEDS ORDERED: MEPERIDINE HCL 25 MG/ML CARP IV PRN (12:45)
[2017-06-18] MEDS ORDERED: FLUMAZENIL 0.1 MG/1 ML 10 ML VIAL IV PRN (12:45)
[2017-06-18] MEDS ORDERED: EpHEDrine SULFATE INJ 50 MG/ML AMP IV PRN (12:45)
[2017-06-18] MEDS ORDERED: LABETALOL HCL IV 5 MG/ML 20ML IV PRN (12:45)
--- NOTE | 2017-06-18 12:55 | Surgery Consultation ---
Consultation Date of Consultation: Jun 18, 2017. 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, pt needs port - A catheter insertion, pt denies fever, no chest pain, Past Medical/Surgical History Medical Problems: (1) Abdominal desmoid tumor Status: Acute (2) Hyponatremia Status: Acute (3) Metastatic cancer Status: Acute Social History Smoking Status: Never Smoker Smokeless Tobacco Use: No Alcohol Use: occasionally Drug Use: none Marital Status: Housing Status: lives with significant other Allergies Coded Allergies: Dronabinol (Verified Allergy, Unknown, FELT LIKE SHE WAS HIGH AND SAW KALEIDOSCOPE LIKE IMAGES, 06/18/17) Home Medications Scheduled Enoxaparin (Lovenox), 90 MG INJ UD Levothyroxine Sodium (Synthroid), 125 MCG PO QAM Liothyronine Sodium (Cytomel), 15 MCG PO QAM Scheduled PRN Ondansetron Hcl (Zofran), 8 MG PO UD PRN for Nausea Oxycodone Ir (Roxicodone Ir), 5 MG PO UD PRN for Pain Prochlorperazine Maleate (Compazine), 10 MG PO Q6H PRN for NAUSEA Miscellaneous Medications [See Notes ] Current Inpatient Medications Current Inpatient Medications Medications (Trade) Dose Ordered Sig/Damaso Route Start Time Stop Time Status Last Admin Dose Admin Cefazolin Sodium 15 ml @ 3.75 mls/ min PREOP IV 06/18/17 06:00 06/18/17 18:00 Lactated Ringer's 1,000 ml @ 15 mls/hr Q24H IV 06/18/17 06:00 06/18/17 18:00 06/18/17 12:28 15 MLS/HR Hydromorphone HCl (Dilaudid Inj) 0.5 mg Q5M PRN IV 06/18/17 12:45 06/19/17 12:44 UNV Fentanyl Citrate (Fentanyl Inj) 25 mcg Q5M PRN IV 06/18/17 12:45 06/19/17 12:44 UNV Naloxone HCl (Narcan Inj) 0.2 mg Q2M PRN IV 06/18/17 12:45 06/19/17 12:44 UNV Meperidine HCl (Demerol Inj) 12.5 mg Q5M PRN IV 06/18/17 12:45 06/19/17 12:44 UNV Ondansetron HCl (Zofran Inj) 4 mg ONE PRN IV 06/18/17 12:45 UNV Flumazenil (Romazicon Inj) 0.2 mg Q2M PRN IV 06/18/17 12:45 06/19/17 12:44 UNV Labetalol HCl (Normodyne IV) 5 mg Q5M PRN IV 06/18/17 12:45 UNV Ephedrine Sulfate (EpHEDrine SULFATE INJ) 5 mg Q5M PRN IV 06/18/17 12:45 06/19/17 12:44 UNV Atropine Sulfate (Atropine Sulfate 0.1mg/ml Inj) 0.5 mg Q1M PRN IV 06/18/17 12:45 06/19/17 12:44 UNV Phenylephrine HCl (Marek-Synephrine 500MCG/5ML Syr) 100 mcg Q5M PRN IV 06/18/17 12:45 06/19/17 12:44 UNV Review of Systems Constitutional: No fever, No chills, No sweats, No weight loss, No weakness, No fatigue, No problem reported Eyes: No worsening of vision, No eye pain, No redness, No discharge, No diplopia, No problem reported ENT: No hearing loss, No unusual epistaxis, No nasal symptoms, No sore throat, No tinnitus, No dental problems, No trouble swallowing, No problem reported Respiratory: No cough, No sputum, No wheezing, No shortness of breath, No dyspnea on exertion, No dyspnea at rest, No hemoptysis, No problem reported Cardiovascular: No chest pain, No orthopnea, No PND, No edema, No claudication , No palpitations, No problem reported Abdomen: + pain (abdominal sarcoma), + nausea Musculoskeletal: No joint pain, No muscle pain, No swelling, No calf pain, No problem reported Genitourinary - Female: No dysuria, No urinary frequency, No urinary urgency, No urinary incontinence, No urinary retention, No hematuria, No dysmenorrhea, No menorrhagia, No metrorrhagia, No rash, No vaginal bleeding, No vaginal discharge, No vaginal itching, No vulvodynia, No , No problem reported Neurologic: No memory loss, No paralysis, No weakness, No numbness/tingling, No vertigo, No balance problems, No problem reported Psychiatric: No depression symptoms, No anhedonism, No anxiety, No insomnia, No substance abuse, No problem reported Endocrine: No fatigue, No excessive thirst, No excessive urination, No problem reported Hematologic / Lymphatic: No abnormal bleeding/bruising, No clotting problems, No swollen lymph nodes, No night sweats, No problem reported Integumentary: No rash, No itch, No new/changing skin lesions, No color change , No bleeding, No problem reported Allergic / Immunologic: No environmental allergies, No seasonal allergies, No pet sensitivities, No food allergies, No hives, No frequent infections, No poor healing, No prolonged convalescence, No problem reported Physical Exam Date Time Temp Pulse Resp B/P (MAP) Pulse Ox O2 Delivery O2 Flow Rate FiO2 06/18/17 11:59 36.9 78 18 99/59 (72) 96 Room Air General Appearance: WD/WN, no apparent distress Head: normocephalic Eyes: normal inspection ENT: normal ENT inspection Neck: supple, no JVD Respiratory/Chest: chest non-tender, lungs clear, + pertinent finding (history PE) Cardiovascular: regular rate, rhythm, no edema, no gallop, no JVD, no murmur Abdomen/GI: normal bowel sounds, soft, + mass Extremities/Musculoskelatal: normal inspection, no calf tenderness, normal capillary refill Neurologic/Psych: no motor/sensory deficits, alert, normal mood/affect Skin: normal color, warm/dry, no rash Assessment & Plan IMP: abdominal sarcoma need port insertion, D/W benefits, risk and alternatives of the surgery, the risks - infection, bleeding, injury lung, dysfunction catheter, pt and her understood, they agree with the surgery, I answered all questions,
--- NOTE | 2017-06-18 13:42 | [facility] Post Operative Brief Note ---
Immediate Operative Summary Operative Date Jun 18, 2017. Pre-Operative Diagnosis Metatastic Cancer, Unknown Primary Post-Operative Diagnosis Metatastic Cancer, Unknown Primary Procedure(s) Performed Placement of A-Port on right internal jugular vein Surgeon Dr Renee Lens Dotter Surgeon(s) Maryan Moody PA-C Estimated Blood Loss 5ml Findings Consistent with Post-Op Diagnosis patent on RIJ Fluids (cc crystalloids) 400ml Specimens None Per Surgeon Drains None Anesthesia Type MAC Complication(s) none Disposition Accompanied Pt To Recover: yes Disposition: Recovery Room / PACU
--- NOTE | 2017-06-18 13:55 | Discharge Instructions ---
Discharge Instructions Date of Service Jun 18, 2017. Admission Reason for Admission: Circulatory System Disorder Discharge Discharge Diagnosis / Problem: same Discharge Goals Goal(s): Decrease discomfort, Improve function Activity Recommendations Activity Limitations: per Instructions/Follow-up section no heavy lifting with right arm or lifting right arm above head for 1 week no strenuous activity for one week No submerging incisions underwater for 2 weeks (no swimming, bathing, or showering) No driving while taking narcotic pain medication or until you are pain free . Instructions / Follow-Up Instructions / Follow-Up You may shower in 3 days, sponge bath and wash hair in meantime Leave dressing on for 3 days and remove. Leave steri strips on incision for 7 days and then remove. If they plan to use your aport prior to then, they can remove the dressing and use the aport. Leave steri strips on small upper incision in neck for 7 days. keep incisions covered, clean, and dry. Take extra strength Tylenol (650 mg) every 6 hours as needed for pain. Follow-up surgical office in 1 week, call office at [phone] Current Hospital Diet Patient's current hospital diet: Discharge Diet Recommended Diet: Regular Diet Procedures Procedures Performed: Placement of A-Port on right internal jugular vein Pending Studies Studies pending at discharge: no Medical Emergencies . Who to Call and When: Medical Emergencies: If at any time you feel your situation is an emergency, please call 911 immediately. . Non-Emergent Contact Non-Emergency issues call your: Primary Care Provider, Surgeon Call Non-Emergent contact if: you have a fever, temperature is above 101, your pain is not controlled, your pain is worsening, your pain is unusual for you, wound has increased drainage, wound has increased redness, wound has increased pain . "Provider Documentation" section prepared by Maryan Moody. .
[2017-06-18] MEDS ORDERED: MoRPHine SULFATE 4 MG/ML 1 ML CARP\\VIAL IV PRN (14:00)
[2017-06-18] MEDS ORDERED: ACETAMINOPHEN 325 MG TAB PO PRN (14:00)
[2017-06-18] MEDS ORDERED: MoRPHine SULFATE 2 MG/ML CARP IV PRN ×2 (14:00)
--- NOTE | 2017-06-18 14:15 | DIAGNOSTIC IMAGING REPORT ---
CHEST ONE VIEW PORTABLE HISTORY: 61 years-old Female s/p insertion of right IJ aport status post placement of a right internal jugular Omclqo-x-Yqvt catheter COMPARISON: CTA pulmonary artery study 05/29/2017 TECHNIQUE: Portable AP view of the chest FINDINGS: Cardiac silhouette is again enlarged. Status post placement of a right internal jugular Qfsjhp-f-Efxi catheter with distal tip terminating within the expected region of the mid SVC. No postprocedural pneumothorax identified. Bibasilar opacities are redemonstrated. Multiple pulmonary nodules are better seen on comparison CTA of the chest. There is a 1.8 cm nodular opacity of the left lung base. Lesion obscuring the aortic arch redemonstrated. Large hiatal hernia with partially intrathoracic stomach. Bones of the chest appear grossly intact. IMPRESSION: Status post placement of a right internal jugular Tobduc-r-Zlzb catheter with distal tip projecting over the mid SVC. No postprocedural pneumothorax. The above report was generated using voice recognition software. It may contain grammatical, syntax or spelling errors. Electronically signed by: Saulo Mota M.D. 06/18/2017 2:14 PM Dictated Date/Time: 06/18/2017 2:11 PM
[2017-06-18 14:30] VITALS: BP 121/69; PULSE 49; TEMP 36.3; O2SAT 96
[2017-06-18 15:00] VITALS: BP 118/59; PULSE 85; O2SAT 97
--- NOTE | 2017-06-18 15:02 | OPERATIVE REPORT ---
DATE OF OPERATION: 06/18/2017 PREOPERATIVE DIAGNOSIS: Abdominal sarcoma, patient needs Zvgi-E-Tumqlfsx insertion. POSTOPERATIVE DIAGNOSIS: Abdominal sarcoma, patient needs Xuke-M-Vhqrxsay insertion. PROCEDURE: Port-A catheter insertion of right internal jugular vein. SURGEON: Dr. Ann Renee. AUTO CLEANER: Maryan Moody PA-C. ANESTHESIA: Conscious sedation plus local. ESTIMATED BLOOD LOSS: About 5 mL. FINDINGS: Patent right internal jugular vein. COMPLICATIONS: None. INDICATIONS FOR THE PROCEDURE: This is a 61-year-old female who has a new diagnosis of abdominal sarcoma. Patient needs Kgfi-D-Dmggewjh for chemo. I did talk to patient about the benefits and risks, alternate procedure. I indicated the risks may include but not limited such as bleeding, infection, injury of lung, dysfunction of catheter. Patient understands. She signed informed consent and I answered all questions. DETAILS OF PROCEDURE: We brought the patient to the OR, put the patient in the supine position. Patient received SCD on bilateral legs to prevent DVT. Also patient received 2 grams Ancef IV for prophylactic antibiotic. Patient received conscious sedation by the anesthesiology. Patient's right side neck and upper chest was prepped and draped in routine sterile fashion. After time out, I injected the local anesthesia by using 1% lidocaine mixed with 0.5% Marcaine on the right neck and right upper chest then made a 0.3 cm incision on the neck. Then I used the ultrasound guide to puncture the right internal jugular vein, easily blood returned. Then we passed the wire over the needle, removed the needle and used a fluoro to confirm the wire located superior vena cava, then I made another 2-1/2 incision on the right upper chest to create the pouch for the port. Hemostasis obtained. The size of the catheter tunneled the catheter from chest to the neck. Then I used sheath over the wire and then removed the wire and dilator, passing the catheters towards the sheath, removed sheath and then again we used fluoro to confirm the catheter tip located junction between superior vena cava and right atrium. When the catheter connected to port, we used a 2-0 Prolene to fix the port in 3 points. Then I used 2-0 Vicryl to close the subcutaneous layer continuous running, closed skin by using 4-0 Vicryl continuous running, then I used a needle to puncture the port, easily blood returned and injection 10 mL heparinized saline. I then put the dressing on. The patient tolerated the procedure well. All the instrument, needle and sponge count were correct x2 at the end of the case. The patient transferred to recovery room in stable condition. After procedure, I did talk to the patient and about both the OR finding and procedure we did, they understand. Also, gave them postop care instructions. I attest to the content of the Intraoperative Record and any orders documented therein. Any exception s are noted below.
[2017-06-18 15:30] VITALS: BP 112/70; PULSE 88; O2SAT 95
--- NOTE | 2017-06-18 15:51 | Anesthesiology Progress Note ---
Anesthesia Post Op Note Date & Time Jun 18, 2017 at 15:51 Vital Signs Pain Intensity: 0 Vital Signs Past 12 Hours Date Time Temp Pulse Resp B/P (MAP) Pulse Ox O2 Delivery O2 Flow Rate FiO2 06/18/17 14:30 36.3 49 16 121/69 96 Room Air 06/18/17 14:20 36.1 81 14 119/74 96 Room Air 06/18/17 14:10 79 14 120/69 98 Room Air 06/18/17 14:00 77 14 110/60 98 Room Air 06/18/17 13:54 36.0 85 14 119/71 99 Room Air 06/18/17 11:59 36.9 78 18 99/59 (72) 96 Room Air Notes Mental Status: alert / awake / arousable, participated in evaluation Pt Amnestic to Procedure: Yes Nausea / Vomiting: adequately controlled Pain: adequately controlled Airway Patency, RR, SpO2: stable & adequate BP & HR: stable & adequate Hydration State: stable & adequate Anesthetic Complications: no major complications apparent
[2017-06-19] MEDS ORDERED: CEFAZOLIN SOD 2000MG/15 ML IV PUSH IV ONE (06:00)
== END 2017-06-18 15:35 | disposition home or self-care (01) ==
LOC: C.ACU 11:12
PROVIDERS: ATTEND Surgery
DX: C48.1 Malignant neoplasm of specified parts of peritoneum (principal); C78.00 Secondary malignant neoplasm of unspecified lung; I26.99 Other pulmonary embolism without acute cor pulmonale; Z79.01 Long term (current) use of anticoagulants; E03.9 Hypothyroidism, unspecified; Z79.899 Other long term (current) drug therapy; I34.0 Nonrheumatic mitral (valve) insufficiency; I35.1 Nonrheumatic aortic (valve) insufficiency; K44.9 Diaphragmatic hernia without obstruction or gangrene

== ENCOUNTER 2017-07-25 03:42 | Inpatient (IN) | payer OTHER ==
[~2017-07-25] VITALS: Ht 167.6 cm; Wt 89.5 kg
[~2017-07-25 03:42] MED LIST changes: -CEFAZOLIN 2000MG IV PUSH 15 ML IV SCH; -LACTATED RINGER'S 1000ML 1,000 ML IV SCH; -PATIENT'S HEIGHT AND/OR WEIGHT NEEDED SCH; +PROC10TA PO; -PROC1TAB5 PO
[2017-07-25] MEDS ORDERED: SODIUM CHLORIDE 0.9% 1000ML 2,000 ML IV STA (03:44)
[2017-07-25] MEDS ORDERED: TRANEXAMIC ACID INJ 1,000 MG in SYRINGE 0 ML IV STA (03:46)
[2017-07-25] MEDS ORDERED: DEXTROSE 5% IV STA ×2 (03:50→04:07)
[2017-07-25] MEDS ORDERED: PROTAMINE SULFATE IV STA ×2 (03:50→04:07)
[2017-07-25] MEDS ORDERED: LIDOCAINE/EPINEPHRINE 1% 20 ML VIAL ONE (03:57)
[2017-07-25] MEDS ORDERED: TRANEXAMIC ACID INJ 1,000 MG in SODIUM CHLORIDE 0.9% 100ML 100 ML IV STA (03:59)
[2017-07-25 04:06] LABS: ISTAT CREATININE 1.9 mg/dl (0.6-1.3); ISTAT IONIZED CALCIUM 1.14 mmol/l (1.12-1.32); ISTAT POTASSIUM 4.7 mEq/L (3.3-5.0)
[2017-07-25] MEDS ORDERED: FNTTP25 TD (04:13)
[2017-07-25] MEDS ORDERED: POLY335019 PO (04:13)
[2017-07-25 04:19] LABS: BASO % 0.2 %; BASO ABS # 0.04 K/uL (0-0.2); EOS % 0.2 %; EOS ABS # 0.04 K/uL (0-0.5); HEMOGLOBIN 7.4 g/dL (12.0-16.0); LYMPH % 7.2 %; LYMPH ABS # 1.21 K/uL (1.2-3.4); MEAN CORPUSCULAR HEMOGLOBIN 29.6 pg (25-34); MEAN CORPUSCULAR HGB CONC 33.6 g/dl (32-36); NEUT % 80.4 %; NEUT ABS # 13.42 K/uL (1.4-6.5); NUCLEATED RED BLOOD CELL ABS 0.07 K/uL (0-0); PLATELET COUNT 294 K/uL (130-400); RED CELL DISTRIBUTION WIDTH CV 20.1 % (11.5-14.5); RED CELL DISTRIBUTION WIDTH SD 61.5 fL (36.4-46.3); WHITE BLOOD COUNT 16.71 K/uL (4.8-10.8)
[2017-07-25] MEDS ORDERED: CALCIUM GLUCONATE 10% 10 ML VIAL IV STA (04:31)
[2017-07-25 04:35] LABS: INR 1.2 (0.9-1.1); PTT PATIENT 35.6 SECONDS (21.0-31.0)
[2017-07-25 04:40] LABS: ALBUMIN 1.7 gm/dl (3.4-5.0); ALKALINE PHOSPHATASE 151 U/L (45-117); ALT/SGPT 11 U/L (12-78); AST/SGOT 36 U/L (15-37); BLOOD UREA NITROGEN 20 mg/dl (7-18); CALCIUM 7.9 mg/dl (8.5-10.1); CARBON DIOXIDE 24 mmol/L (21-32); CREATININE 1.62 mg/dl (0.60-1.20); GLUCOSE 105 mg/dl (70-99); POTASSIUM 4.6 mmol/L (3.5-5.1); SODIUM 128 mmol/L (136-145); TOTAL PROTEIN 4.8 gm/dl (6.4-8.2)
[2017-07-25] MEDS ORDERED: LORAZEPAM 0.5 MG TAB SL STA (04:51)
[2017-07-25] MEDS ORDERED: TRANEXAMIC ACID INJ 1,000 MG in SODIUM CHLORIDE 0.9% 100ML 100 ML TOP STA (04:58)
[2017-07-25] MEDS ORDERED: ACETAMINOPHEN 500 MG TAB PO STA (04:59)
[2017-07-25 05:00] VITALS: Ht 167.6 cm; Wt 89.5 kg
[2017-07-25] MEDS ORDERED: ONDANSETRON INJ 2 MG/ML 2 ML VIAL IV STA (05:07)
[2017-07-25] MEDS ORDERED: MoRPHine SULFATE 4 MG/ML 1 ML CARP\\VIAL IV STA ×2 (05:07→05:18)
[2017-07-25] MEDS ORDERED: MoRPHine SULFATE 4 MG/ML 1 ML CARP\\VIAL ONE (05:07)
[2017-07-25] MEDS ORDERED: ACETAMINOPHEN IV 1,000 MG in EMPTY BAG 0 ML IV STA (05:07)
[2017-07-25] MEDS ORDERED: ACETAMINOPHEN 1000 MG/100 ML IV IV ONE (05:10)
[2017-07-25] MEDS ORDERED: LORAZEPAM 2 MG/ML 1 ML VIAL IV STA (05:18)
[2017-07-25 05:23] LABS: ISTAT CREATININE 1.7 mg/dl (0.6-1.3); ISTAT IONIZED CALCIUM 0.87 mmol/l (1.12-1.32); ISTAT POTASSIUM 5.1 mEq/L (3.3-5.0)
[2017-07-25] MEDS ORDERED: MoRPHine SULF/NSS 250MG/250ML 250 ML IV PRN (05:30)
--- NOTE | 2017-07-25 05:58 | EMERGENCY ROOM VISIT NOTE ---
History First contact with patient: 03:32 Chief Complaint: RECTAL BLEEDING Stated Complaint: RECTAL BLEED History of Present Illness The patient is a 61 year old female who presents to the Emergency Room with complaints of rectal bleed. The patient had 2-3 L of blood at home. She has known abdominal tumors and is currently on hospice however she is not ready to . Family called the ambulance tonight because they feel she is not ready to either. She has a daughter out of state who is coming in to [place] tomorrow I would like to be alive until then. She is currently not getting treatment for the tumors. Review of Systems See HPI for pertinent positives & negatives. A total of 10 systems reviewed and were otherwise negative. 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 (4) Pulmonary emboli Social History Smoking Status: Never Smoker Alcohol Use: none Drug Use: none Marital Status: Housing Status: lives with significant other Current/Historical Medications Scheduled Enoxaparin (Lovenox), 90 MG INJ Q12 Fentanyl (Fentanyl), 25 MCG TD DIRECTED Levothyroxine Sodium (Synthroid), 125 MCG PO QAM Liothyronine Sodium (Cytomel), 15 MCG PO QAM Polyethylene Glycol 3350 (Miralax), 17 GM PO DAILY Scheduled PRN Ondansetron Hcl (Zofran), 8 MG PO UD PRN for Nausea Oxycodone Ir (Roxicodone Ir), 5 MG PO UD PRN for Pain Prochlorperazine Maleate (Compazine), 10 MG PO Q6H PRN for NAUSEA Physical Exam Vital Signs Date Time Temp Pulse Resp B/P (MAP) Pulse Ox O2 Delivery O2 Flow Rate FiO2 07/25/17 05:07 147 07/25/17 04:47 181 07/25/17 04:30 181 07/25/17 04:25 188 07/25/17 04:23 174 07/25/17 04:21 165 07/25/17 04:21 158 07/25/17 04:20 199 07/25/17 04:19 194 07/25/17 03:49 103 Physical Exam GENERAL: Awake, alert, ill-appearing, in moderate distress HENT: Normocephalic, atraumatic. Oropharynx unremarkable. EYES: Normal conjunctiva. Sclera non-icteric. NECK: Supple. No nuchal rigidity. FROM. No JVD. RESPIRATORY: Clear to auscultation. CARDIAC: Regular rate, normal rhythm. Extremities warm and well perfused. Pulses equal. ABDOMEN: Soft, non-distended. No tenderness to palpation. No rebound or guarding. No masses. RECTAL: Pulsatile blood draining from rectum, large amount of clots MUSCULOSKELETAL: Chest examination reveals no tenderness. The back is symmetrical on inspection without obvious abnormality. There is no CVA tenderness to palpation. No joint edema. LOWER EXTREMITIES: Calves are equal size bilaterally and non-tender. No edema. No discoloration. NEURO: Normal sensorium. No sensory or motor deficits noted. SKIN: No rash or jaundice noted. Medical Decision & Procedures Laboratory Results Test 07/25/17 03:53 07/25/17 03:58 07/25/17 04:12 07/25/17 05:00 RDW Standard Deviation 61.5 fL (36.4-46.3) RDW Coefficient of Variation 20.1 % (11.5-14.5) White Blood Count 16.71 K/uL (4.8-10.8) Red Blood Count 2.50 M/uL (4.2-5.4) Hemoglobin 7.4 g/dL (12.0-16.0) Hematocrit 22.0 % (37-47) Mean Corpuscular Volume 88.0 fL (80-100) Mean Corpuscular Hemoglobin 29.6 pg (25-34) Mean Corpuscular Hemoglobin Concent 33.6 g/dl (32-36) Platelet Count 294 K/uL (130-400) Mean Platelet Volume 8.0 fL (7.4-10.4) Neutrophils (%) (Auto) 80.4 % Lymphocytes (%) (Auto) 7.2 % Monocytes (%) (Auto) 9.0 % Eosinophils (%) (Auto) 0.2 % Basophils (%) (Auto) 0.2 % Neutrophils # (Auto) 13.42 K/uL (1.4-6.5) Lymphocytes # (Auto) 1.21 K/uL (1.2-3.4) Monocytes # (Auto) 1.50 K/uL (0.11-0.59) Eosinophils # (Auto) 0.04 K/uL (0-0.5) Basophils # (Auto) 0.04 K/uL (0-0.2) Immature Granulocyte % (Auto) 3.0 % Immature Granulocyte # (Auto) 0.50 K/uL (0.00-0.02) Nucleated RBC Absolute Count (auto) 0.07 K/uL (0-0) Nucleated Red Blood Cells % 0.4 % Anisocytosis PRESENT Acanthocytes 1+ Globulin 3.1 gm/dl (2.5-4.0) Albumin/Globulin Ratio 0.5 (0.9-2) Bedside Prothrombin Time INR 1.2 (0.9-1.1) Lactic Acid Level 3.3 mmol/L (0.4-2.0) Ionized Calcium 1.12 mmol/l (1.12-1.32) Test 07/25/17 05:07 07/25/17 05:10 Bedside Hemoglobin 10.5 g/dl (12.0-16.0) Bedside Hematocrit 31 % (37-47) Bedside Sodium 123 mEq/L (135-144) Bedside Potassium 5.1 mEq/L (3.3-5.0) Bedside Chloride 92 mEq/L (101-112) Bedside Total CO2 20 mEq/l (24-31) Anion Gap 18.0 mmol/L (16-25) Bedside Blood Urea Nitrogen 21 mg/dl (7-18) Bedside Creatinine 1.7 mg/dl (0.6-1.3) Bedside Glucose (other) 148 mg/dl (70-99) Bedside Ionized Calcium (Cyntiha) 0.87 mmol/l (1.12-1.32) Medications Administered Medications (Trade) Dose Ordered Sig/Damaso Route Start Time Stop Time Status Last Admin Dose Admin Morphine Sulfate/ Dextrose 250 ml @ 0 mls/hr Q0M PRN IV 07/25/17 05:30 08/08/17 05:29 07/25/17 05:32 2 MLS/HR Medical Decision This is a 61-year-old female who presents the emergency department requesting that everything be done. I cautioned the patient that I do not foresee a good outcome but would do my best. The patient's hemoglobin on i-STAT was found to be 6.8. 3 large-bore IVs were established and the patient was given 2 L of normal saline bolus along with 2 units of O-. I contacted the PA software security consultant for the ICU as well as gastroenterology as well as general surgery. Massive transfusion protocol was initiated. And the patient was given a further 2 units of O-. The patient was also given TXA via IV. I did discuss the case with Dr. Elizondo who recommended protamine for the patient's Lovenox. Dr. Lindsay was kind enough to visit the patient at the bedside however at this point the patient does not want wish to have any surgery. Gastroenterology recommended the patient go to a tertiary care center for IR however the patient is also refusing this. Blood consent was signed by the patient's . She received 2 units of FFP as well as 1 unit of platelets and a further 3 units of typed and crossed blood. The patient began to tire of all the treatments and then decided that she did not wish to have anything further done. At this point she was placed on a morphine drip and given Ativan. I did discuss the case the hospitalist service. Impression Primary Impression: Primary sarcoma of intra-abdominal site Additional Impression: Rectal arterial hemorrhage Critical Care I have personally spent greater than 120 minutes of critical care time in the direct management of this patient. This includes bedside care, interpretation of diagnostic studies, and testing, discussion with consultants, patient, and family members, and other required patient management activities. This 120 minutes is in excess of all separately billable procedures. Departure Information Dispostion Still a Patient Referrals Joya Garcia D.O. (PCP) Patient Instructions [facility] Problem Qualifiers
[2017-07-25] MEDS ORDERED: LORAZEPAM 2 MG/ML 1 ML VIAL IV PRN (06:00)
[2017-07-25] MEDS ORDERED: PROCHLORPERAZINE INJ 5 MG in SYRINGE 4 ML IV PRN (06:00)
[2017-07-25] MEDS ORDERED: MoRPHine SULFATE 2 MG/ML CARP IV PRN (06:00)
[2017-07-25] MEDS ORDERED: ACETAMINOPHEN 325 MG TAB PO PRN (06:00)
[2017-07-25] MEDS ORDERED: FENTANYL 25 MCG/HR TDSY TD SCH (06:00)
[2017-07-25 06:12] VITALS: O2SAT 89
--- NOTE | 2017-07-25 06:36 | Critical Care Progress Note ---
Critical Care Progress Note Date of Service July 25, 2017. Critical Care Progress Note I was contacted by the emergency department physician at approximately 0330 for concerns for significant rectal bleeding of the patient. Upon arrival, the patient was laying on her RIGHT side and some pulsatile blood was appreciated from the rectal vault. The patient had an RIGHT a port which was accessed by nursing staff. She had 2 large-bore peripheral sites as well. She had been typed and crossed initially and had received 2 L of normal saline. Discussion with the patient was conducted and she reports that she is comfortable with blood transfusion at this point. Massive transfusion protocol was ordered. I did speak with the blood bank to help facilitate rapid transfusion. In addition , the patient's rectum was packed with a tranexamic acid soaked pressure dressing. Pressure was applied to the area. I did speak with the patient's family. At this point, they are in agreement with continuing with transfusion, however they are leaving further decisions as to CODE STATUS to the patient. Patient did go into a rapid heart rate in the 150s-170s which appeared to be irregular on the monitor. At this point, multiple rounds of blood products including PRBCs, FFP, and platelets were infused with pressure bags. Her blood pressure did seem to respond nicely. Repeat labs did show improvement of her H& H. General surgery did evaluate the patient and the patient refuses surgery. In addition, GI had reviewed the patient's record and had recommended transfer to tertiary care facility. Patient declines transfer at this time. When we discussed preparing the patient for transfer to the ICU for continued care, the patient informed her family that she wished to "give me some medicine and let me ." I did speak with the patient at great length and discussed her wishes. At this point, the patient does not wish for any further interventions. I did explain to the patient that if we are to withdraw further interventions, she will likely pass away from the bleeding. She recognizes this and states that she wishes to go peacefully and that currently she does not feel at peace. I explained that we would stop further transfusions as well as any other medications other than drugs to keep the patient comfortable. She acknowledges this and is in agreement. The patient is awake, alert, and oriented 4. Her family is at bedside and is comfortable with her decision making. At this point, given the gravid scenario and worsening circumstances, the patient will be made comfort measures only. Thank you for allowing us to participate in the care of the patient. I have personally spent 80 minutes of critical care time in the direct management of this patient. This is a life/limb threatening event. This includes time spent evaluating patient, direct bedside care, chart review, placing orders, interpretation of diagnostic studies, discussion with consultants, patient, and family members, as well as other required patient management activities. This time is exclusive of all separately billable procedures, and teaching time and separate from and in addition to any other critical care service time. Thank you for this consultation allow us to be part of this patient's care. Please refer to my attending physician's documentation for any further recommendations. I agree with assessment and plan of Nikolay Watkins PA-C. I discussed the patient with Nikolay Watkins via telephone. This was likely a nonsurvivable bleed, given that the patient has multiple metastases in the abdomen surgical exploration is an ill advised option, she would require a massive transfusion protocol in hopes that she could be emergently transferred to an interventional radiologist, which was reportedly against her long-term wishes.
[2017-07-25 06:38] LABS: BASO % 0.1 %; BASO ABS # 0.02 K/uL (0-0.2); EOS % 0.2 %; EOS ABS # 0.03 K/uL (0-0.5); HEMATOCRIT 32.2 % (37-47); HEMOGLOBIN 10.5 g/dL (12.0-16.0); IG# 0.57 K/uL (0.00-0.02); LYMPH ABS # 1.14 K/uL (1.2-3.4); MEAN CELL VOLUME 88.7 fL (80-100); MEAN CORPUSCULAR HEMOGLOBIN 28.9 pg (25-34); MEAN CORPUSCULAR HGB CONC 32.6 g/dl (32-36); MEAN PLATELET VOLUME 8.3 fL (7.4-10.4); MONO % 7.7 %; MONO ABS # 1.26 K/uL (0.11-0.59); NEUT % 81.5 %; NEUT ABS # 13.24 K/uL (1.4-6.5); PLATELET COUNT 190 K/uL (130-400); RED CELL DISTRIBUTION WIDTH CV 16.9 % (11.5-14.5); RED CELL DISTRIBUTION WIDTH SD 53.2 fL (36.4-46.3); WHITE BLOOD COUNT 16.26 K/uL (4.8-10.8)
[2017-07-25] MEDS: CHECK FENTANYL PATCH PLACEMENT SCH ×2 (09:27→15:22)
[2017-07-25] MEDS ORDERED: MoRPHine SULFATE 4 MG/ML 1 ML CARP\\VIAL IV PRN (09:30)
[2017-07-25] MEDS: MoRPHine SULF/NSS 250MG/250ML 250 ML IV PRN (09:30)
--- NOTE | 2017-07-25 10:10 | HISTORY & PHYSICAL EXAMINATION ---
DATE OF ADMISSION: 07/25/2017 PRIMARY CARE PHYSICIAN: Dr. Garcia. CHIEF COMPLAINT: Rectal bleeding. HISTORY OF PRESENT ILLNESS: History obtained from patient, family, and records. Limited history from patient secondary to lethargic state. 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 CAT scan of the chest showed a large pulmonary embolism in the right. Patient started on Lovenox. Underwent chemotherapy. A repeat CAT scan from 07/2017 showed increasing abdominal pelvic mesenteric masses, development of additional intra-abdominal metastatic lesions encasing the aorta and IVC. Additional multiple bilateral pulmonary metastatic lesions, pericardial thickening, nodularity noted. Patient had a followup with her [facility] oncologist about 2 days ago. Patient and family notified about poor prognosis. Consideration for palliative care. Early this morning, patient woke up with achy abdominal discomfort, bloody stools. No chest pain. No shortness of breath. No emesis. She was brought to the Emergency Room. Noted to be hypotensive and tachycardic. Hemoglobin noted to be 7.4. IV fluids, Protamine and Tranexamic acid given. Patient and family refused additional intervention and have decided on comfort measures. MEDICAL HISTORY: As above. SURGERIES: A-port placement, carpal tunnel surgery, cataract surgery, abdominal mass biopsy. HOME MEDICATIONS: Include cholecalciferol, docusate, Lovenox, fentanyl, she has had levothyroxine, and oxycodone. ALLERGIES: MARINOL. FAMILY HISTORY: Hypertension. PERSONAL AND SOCIAL HISTORY: Nonsmoker. No chronic intake of alcoholic beverages. REVIEW OF SYSTEMS: Cannot be obtained. PHYSICAL EXAMINATION: VITAL SIGNS: Blood pressure was noted to be 85/89, pulse rate 160, RR 22, temperature 36.6, sats 94 on room air. GENERAL: Noted to be obese, lethargic, respiratory distress. SKIN: Pallor, cool. HEENT: Alopecia, pale palpebral conjunctivae, No ptosis. Dry mucosa. NECK: Short neck, supple. CHEST: Decreased effort, no tenderness. HEART: Tachycardic. No murmur. ABDOMEN: Marked distention, tenderness on light palpation. EXTREMITIES: Minimal LE edema, no tenderness, no other gross deformities NEUROLOGIC: Lethargic. No facial asymmetry. No other gross focality. LABS: Hemoglobin 7.4, hematocrit 22, white cells 16.7, platelets 294. Sodium noted to be 128, potassium 4.6, chloride 94, CO2 is 24, BUN 20, creatinine 1.6, glucose 105. ASSESSMENT: 1. Mesenteric sarcoma with mets sp chemotherapy 2. LGIB history of PE on therapeutic Lovenox Rx Hemodynamic instability noted in the ER PLAN: Comfort measures as per patient and family decision. MTDD
--- NOTE | 2017-07-25 16:35 | Progress Note ---
Subjective Date of Service: July 25, 2017. Subjective Pt evaluation today including: conversation w/ family, physical exam, lab review, review of studies, review of inpatient medication list Saw/examined the patient in room 420 She is resting comfortably, and daughter at bedside State she is in no distress Problem List Medical Problems: (1) Abdominal desmoid tumor Status: Acute (2) Hyponatremia Status: Acute (3) Metastatic cancer Status: Acute (4) Rectal arterial hemorrhage Status: Acute Medications Current Inpatient Medications Medications (Trade) Dose Ordered Sig/Damaso Route Start Time Stop Time Status Last Admin Dose Admin Acetaminophen (Tylenol Tab) 650 mg Q4H PRN PO 07/25/17 06:00 08/24/17 05:59 Lorazepam 1 mg/ Syringe 1 ml @ 1 mls/min Q15M PRN IV 07/25/17 06:00 08/24/17 05:59 Prochlorperazine Edisylate 5 mg/ Syringe 5 ml @ 5 mls/min Q6H PRN IV 07/25/17 06:00 08/24/17 05:59 Lorazepam (Ativan Inj) 1 mg Q15M PRN IV 07/25/17 06:00 08/24/17 05:59 Miscellaneous Information (Check Fentanyl Patch Placement) 1 ea QS N/A 07/25/17 08:00 08/24/17 07:59 07/25/17 15:22 1 EA Fentanyl (Duragesic Patch) 25 mcg Q72H TD 07/26/17 08:00 08/09/17 07:59 Miscellaneous (Fentanyl Patch Remove & Waste) 1 ea Q3D@0759 N/A 07/26/17 07:59 08/25/17 07:58 Morphine Sulfate/ Dextrose 250 ml @ 0 mls/hr Q0M PRN IV 07/25/17 09:30 08/08/17 05:29 07/25/17 09:30 5 MLS/HR Morphine Sulfate (MoRPHine SULFATE INJ) 2 mg Q15M PRN IV 07/25/17 09:30 08/08/17 05:59 Objective Vital Signs Date Time Temp Pulse Resp B/P (MAP) Pulse Ox O2 Delivery O2 Flow Rate FiO2 07/25/17 16:00 Nasal Cannula 2.0 07/25/17 11:45 Nasal Cannula 2.0 07/25/17 06:28 194 07/25/17 06:12 136 14 89 07/25/17 06:01 108/57 07/25/17 05:57 140 13 90 07/25/17 05:46 85/69 07/25/17 05:42 117 19 92 07/25/17 05:31 91/80 07/25/17 05:27 147 16 91 07/25/17 05:16 109/82 07/25/17 05:12 154 22 94 07/25/17 05:07 147 07/25/17 05:01 130/112 07/25/17 04:57 106 23 95 07/25/17 04:50 117/87 07/25/17 04:47 181 07/25/17 04:46 101/79 07/25/17 04:45 99/77 07/25/17 04:42 169 24 96 07/25/17 04:36 100/79 07/25/17 04:30 181 07/25/17 04:27 160 23 96 07/25/17 04:25 188 07/25/17 04:23 174 07/25/17 04:21 165 07/25/17 04:21 158 07/25/17 04:20 199 07/25/17 04:19 194 07/25/17 04:16 90/49 07/25/17 04:12 94 19 96 07/25/17 04:10 90/51 07/25/17 04:06 81/46 07/25/17 04:01 80/47 07/25/17 04:00 94 Room Air 07/25/17 03:58 36.6 104 20 98/42 94 Nasal Cannula 1.5 07/25/17 03:57 99 23 96 07/25/17 03:56 101/56 07/25/17 03:49 103 07/25/17 03:46 98/42 Physical Exam General Appearance: no apparent distress Respiratory/Chest: no respiratory distress, no accessory muscle use Neurologic/Psychiatric: + pertinent finding (somnolent, in no distress) Laboratory Results Last 24 Hours Test 07/25/17 03:53 07/25/17 03:58 07/25/17 04:12 07/25/17 05:00 White Blood Count 16.71 K/uL Red Blood Count 2.50 M/uL Hemoglobin 7.4 g/dL Hematocrit 22.0 % Mean Corpuscular Volume 88.0 fL Mean Corpuscular Hemoglobin 29.6 pg Mean Corpuscular Hemoglobin Concent 33.6 g/dl Platelet Count 294 K/uL Mean Platelet Volume 8.0 fL Neutrophils (%) (Auto) 80.4 % Lymphocytes (%) (Auto) 7.2 % Monocytes (%) (Auto) 9.0 % Eosinophils (%) (Auto) 0.2 % Basophils (%) (Auto) 0.2 % Neutrophils # (Auto) 13.42 K/uL Lymphocytes # (Auto) 1.21 K/uL Monocytes # (Auto) 1.50 K/uL Eosinophils # (Auto) 0.04 K/uL Basophils # (Auto) 0.04 K/uL Bedside Hemoglobin 6.8 g/dl Bedside Hematocrit 20 % RDW Standard Deviation 61.5 fL RDW Coefficient of Variation 20.1 % Immature Granulocyte % (Auto) 3.0 % Immature Granulocyte # (Auto) 0.50 K/uL Nucleated RBC Absolute Count (auto) 0.07 K/uL Nucleated Red Blood Cells % 0.4 % Anisocytosis PRESENT Acanthocytes 1+ Prothrombin Time 12.6 SECONDS Prothromb Time International Ratio 1.2 Activated Partial Thromboplast Time 35.6 SECONDS Partial Thromboplastin Ratio 1.4 Bedside Sodium 125 mEq/L Sodium Level 128 mmol/L Bedside Potassium 4.7 mEq/L Potassium Level 4.6 mmol/L Bedside Chloride 91 mEq/L Chloride Level 94 mmol/L Carbon Dioxide Level 24 mmol/L Bedside Total CO2 23 mEq/l Anion Gap 16.0 mmol/L Bedside Blood Urea Nitrogen 19 mg/dl Blood Urea Nitrogen 20 mg/dl Creatinine 1.62 mg/dl Bedside Creatinine 1.9 mg/dl Estimated GFR () 39.9 Estimated GFR (Non- 34.4 BUN/Creatinine Ratio 12.4 Bedside Glucose (other) 109 mg/dl Random Glucose 105 mg/dl Calcium Level 7.9 mg/dl Bedside Ionized Calcium (Cynthia) 1.14 mmol/l Total Bilirubin 0.4 mg/dl Aspartate Amino Transf (AST/SGOT) 36 U/L Alanine Aminotransferase (ALT/SGPT) 11 U/L Alkaline Phosphatase 151 U/L Total Protein 4.8 gm/dl Albumin 1.7 gm/dl Globulin 3.1 gm/dl Albumin/Globulin Ratio 0.5 Bedside Prothrombin Time INR 1.2 Lactic Acid Level 3.3 mmol/L Magnesium Level 1.9 mg/dl Direct Bilirubin 0.2 mg/dl Thyroid Stimulating Hormone (TSH) 34.000 uIu/ml Ionized Calcium 1.12 mmol/l Test 07/25/17 05:07 07/25/17 05:10 White Blood Count 16.26 K/uL Red Blood Count 3.63 M/uL Hemoglobin 10.5 g/dL Hematocrit 32.2 % Mean Corpuscular Volume 88.7 fL Mean Corpuscular Hemoglobin 28.9 pg Mean Corpuscular Hemoglobin Concent 32.6 g/dl Platelet Count 190 K/uL Mean Platelet Volume 8.3 fL Neutrophils (%) (Auto) 81.5 % Lymphocytes (%) (Auto) 7.0 % Monocytes (%) (Auto) 7.7 % Eosinophils (%) (Auto) 0.2 % Basophils (%) (Auto) 0.1 % Neutrophils # (Auto) 13.24 K/uL Lymphocytes # (Auto) 1.14 K/uL Monocytes # (Auto) 1.26 K/uL Eosinophils # (Auto) 0.03 K/uL Basophils # (Auto) 0.02 K/uL RDW Standard Deviation 53.2 fL RDW Coefficient of Variation 16.9 % Immature Granulocyte % (Auto) 3.5 % Immature Granulocyte # (Auto) 0.57 K/uL Bedside Hemoglobin 10.5 g/dl Bedside Hematocrit 31 % Bedside Sodium 123 mEq/L Bedside Potassium 5.1 mEq/L Bedside Chloride 92 mEq/L Bedside Total CO2 20 mEq/l Anion Gap 18.0 mmol/L Bedside Blood Urea Nitrogen 21 mg/dl Bedside Creatinine 1.7 mg/dl Bedside Glucose (other) 148 mg/dl Bedside Ionized Calcium (Cynthia) 0.87 mmol/l Assessment and Plan This is a 61 year old female with a past medical history of sarcoma with mets with hx. of chemotherapy with little improvement, hx. of PE on Lovenox, presents with lower GI bleed, lethargy and subsequently made comfort measures only Metastatic Soft Tissue Sarcoma Comfort Measures Only - hx. of mesenteric mets, has had chemo - now, worsening; with lethargy, pain - now on morphine ggt, comfort measures only - no additional needs identified - poor prognosis, will likely pass away in 1-2 days - no labs, no vitals - will stop Lovenox and all other non-comfort medications - family aware and agree with plan
[2017-07-25] MEDS ORDERED: ATROPINE SULFATE 1% OP SOLN 5 ML BTL SL PRN (17:00)
[2017-07-26 00:04] VITALS: BP 135/81; PULSE 103; TEMP 36.9; O2SAT 92
[2017-07-26] MEDS ORDERED: TRANEXAMIC ACID INJ 1,000 MG in SODIUM CHLORIDE 0.9% 100ML 100 ML TOP SCH ×4 (06:00)
--- NOTE | 2017-07-26 06:40 | Progress Note ---
Post ICU Progress Note Date & Time July 26, 2017 at 06:36 Vital Signs Vital Signs Past 12 Hours Date Time Temp Pulse Resp B/P (MAP) Pulse Ox O2 Delivery O2 Flow Rate FiO2 07/26/17 00:00 Nasal Cannula 2.0 07/25/17 20:00 Nasal Cannula 2.0 Notes Mental Status: see Notes Nausea / Vomiting: adequately controlled Pain: see Notes Airway Patency, RR, SpO2: see Notes BP & HR: see Notes Patient is a 61-year-old female who I initially became involved with in the emergency department as she was actively exsanguinating from her rectum. After multiple rounds of blood products and intervention, the patient did elect to decline any further intervention and requested comfort measures only at this point. Thankfully, the patient was able to make it to speak to her daughter who was flying in from [place]. She is currently on morphine drip. On evaluation this morning, the patient is resting peacefully. Family reports that they are thankful that she has made to this point. They are realistic with expectations and plan to stay in the hospital until eventual demise. They were offered support and declined anything further at this time. Repeat imaging needed: None Follow up cultures: None Reviewed progress notes, labs, and inpatient medication list Continue current management Additional recommendations: None at this time. Thank you for allowing us to participate in the care of this patient. At this time, the Critical Care Services will sign off on this case. Please feel free to reconsult as needed.
[2017-07-26] MEDS: LORAZEPAM INJ 1 MG in SYRINGE 0.5 ML IV PRN ×2 (06:44→09:12)
[2017-07-26] MEDS ORDERED: FENTANYL PATCH REMOVE & WASTE SCH (07:59)
[2017-07-26] MEDS: CHECK FENTANYL PATCH PLACEMENT SCH ×2 (08:00)
[2017-07-26] MEDS ORDERED: FENTANYL 25 MCG/HR TDSY TD SCH (08:00)
[2017-07-26] MEDS: MoRPHine SULF/NSS 250MG/250ML 250 ML IV PRN ×2 (08:18→10:51)
[2017-07-26] MEDS ORDERED: NURSING VERBAL MED ORDER ONE ×2 (08:30→11:00)
--- NOTE | 2017-07-26 12:24 | Progress Note ---
Progress Note Date of Service July 26, 2017. Progress Note 07/26 I saw the patient today at around noon, she had stopped breathing Examined the patient: pupils are fixed and dilated, no spontaneous respirations , no pulse Time of : 1158 Cause of : Metastatic Soft Tissue Sarcoma This is a 61 year old female with a past medical history of sarcoma with mets with hx. of chemotherapy with little improvement, hx. of PE on Lovenox, presents with lower GI bleed, lethargy and subsequently made comfort measures only Metastatic Soft Tissue Sarcoma Comfort Measures Only - hx. of mesenteric mets, has had chemo - now, worsening; with lethargy, pain - now on morphine ggt, comfort measures only - no additional needs identified - poor prognosis, will likely pass away in 1-2 days - no labs, no vitals - will stop Lovenox and all other non-comfort medications - family aware and agree with plan
--- NOTE | 2017-07-26 12:27 | Discharge Summary ---
Discharge Summary Date of Service July 26, 2017. Discharge Summary Admission Date: July 25, 2017 at 05:47 Discharge Date: July 26, 2017 Discharge Disposition: Principal Diagnosis: Metastatic Soft Tissue Sarcoma Admission Information HPI (per Admitting provider): DATE OF ADMISSION: 07/25/2017 PRIMARY CARE PHYSICIAN: Dr. Garcia. CHIEF COMPLAINT: Rectal bleeding. HISTORY OF PRESENT ILLNESS: History obtained from patient, family, and records. Limited history from patient secondary to lethargic state. 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 CAT scan of the chest showed a large pulmonary embolism in the right. Patient started on Lovenox. Underwent chemotherapy. A repeat CAT scan from 07/2017 showed increasing abdominal pelvic mesenteric masses, development of additional intra-abdominal metastatic lesions encasing the aorta and IVC. Additional multiple bilateral pulmonary metastatic lesions, pericardial thickening, nodularity noted. Patient had a followup with her [facility] [place] oncologist about 2 days ago. Patient and family notified about poor prognosis. Consideration for palliative care. Early this morning, patient woke up with achy abdominal discomfort, bloody stools. No chest pain. No shortness of breath. No emesis. She was brought to the Emergency Room. Noted to be hypotensive and tachycardic. Hemoglobin noted to be 7.4. IV fluids, Protamine and Tranexamic acid given. Patient and family refused additional intervention and have decided on comfort measures. MEDICAL HISTORY: As above. SURGERIES: A-port placement, carpal tunnel surgery, cataract surgery, abdominal mass biopsy. HOME MEDICATIONS: Include cholecalciferol, docusate, Lovenox, fentanyl, she has had levothyroxine, and oxycodone. ALLERGIES: MARINOL. FAMILY HISTORY: Hypertension. PERSONAL AND SOCIAL HISTORY: Nonsmoker. No chronic intake of alcoholic beverages. REVIEW OF SYSTEMS: Cannot be obtained. PHYSICAL EXAMINATION: VITAL SIGNS: Blood pressure was noted to be 85/89, pulse rate 160, RR 22, temperature 36.6, sats 94 on room air. GENERAL: Noted to be obese, lethargic, respiratory distress. SKIN: Pallor, cool. HEENT: Alopecia, pale palpebral conjunctivae, No ptosis. Dry mucosa. NECK: Short neck, supple. CHEST: Decreased effort, no tenderness. HEART: Tachycardic. No murmur. ABDOMEN: Marked distention, tenderness on light palpation. EXTREMITIES: Minimal LE edema, no tenderness, no other gross deformities NEUROLOGIC: Lethargic. No facial asymmetry. No other gross focality. LABS: Hemoglobin 7.4, hematocrit 22, white cells 16.7, platelets 294. Sodium noted to be 128, potassium 4.6, chloride 94, CO2 is 24, BUN 20, creatinine 1.6, glucose 105. ASSESSMENT: 1. Mesenteric sarcoma with mets sp chemotherapy 2. LGIB history of PE on therapeutic Lovenox Rx Hemodynamic instability noted in the ER PLAN: Comfort measures as per patient and family decision Hospital Course 07/26 I saw the patient today at around noon, she had stopped breathing Examined the patient: pupils are fixed and dilated, no spontaneous respirations , no pulse Time of : 1158 Cause of : Metastatic Soft Tissue Sarcoma This is a 61 year old female with a past medical history of sarcoma with mets with hx. of chemotherapy with little improvement, hx. of PE on Lovenox, presents with lower GI bleed, lethargy and subsequently made comfort measures only Metastatic Soft Tissue Sarcoma Comfort Measures Only - hx. of mesenteric mets, has had chemo - now, worsening; with lethargy, pain - now on morphine ggt, comfort measures only - no additional needs identified - poor prognosis, will likely pass away in 1-2 days - no labs, no vitals - will stop Lovenox and all other non-comfort medications - family aware and agree with plan Total time spent on discharge = This includes examination of the patient, discharge planning, medication reconciliation, and communication with other providers. Discharge Instructions .
[2017-07-28] MEDS ORDERED: FENTANYL PATCH REMOVE & WASTE SCH (05:59)
== END 2017-07-26 13:14 | disposition expired | DRG 375 ==
LOC: EDBD 03:42 → C.EDB 03:43 → C.4E 05:47 → ENRESERV 06:21
PROVIDERS: ADMIT Internal Medicine; ATTEND Family Medicine
DX: C48.1 Malignant neoplasm of specified parts of peritoneum (principal); K62.5 Hemorrhage of anus and rectum; Z79.01 Long term (current) use of anticoagulants; Z79.899 Other long term (current) drug therapy; Z51.5 Encounter for palliative care; Z86.711 Personal history of pulmonary embolism; E03.9 Hypothyroidism, unspecified; D64.9 Anemia, unspecified; G89.3 Neoplasm related pain (acute) (chronic); Z88.8 Allergy status to other drugs, medicaments and biological substances